=== PATIENT | female | born 1985 | race Caucasian/White ===

== ENCOUNTER 2017-06-17 15:44 | Inpatient (IN) | payer MEDICAID ==
[2017-06-17] MEDS ORDERED: IBUPROFEN 600 MG TAB PO (16:30)
[2017-06-17] MEDS ORDERED: CARBOPROST 250 MCG INJ IM (16:30)
[2017-06-17] MEDS ORDERED: BUTORPHANOL 2 MG INJ IV (16:30)
[2017-06-17] MEDS ORDERED: METHYLERGONOVINE 0.2 MG INJ IM (16:30)
[2017-06-17] MEDS ORDERED: LIDOCAINE 1% (MPF) 30 ML INJ INJ (16:30)
[2017-06-17] MEDS ORDERED: MISOPROSTOL 200 MCG TAB PR (16:30)
[2017-06-17] MEDS ORDERED: OXYTOCIN 30 UNITS/LR 500 ML IV (16:30)
[2017-06-17] MEDS: LACTATED RINGER'S 1,000 ML IV (17:58)
[2017-06-17] MEDS: DINOPROSTONE 10 MG VAG SUPP VAG (17:59)
[2017-06-17 18:11] LABS: ADD MAN DIFF? NO
[2017-06-17 18:13] LABS: BASOPHILS % 0.2 % (0.0-2.0); EOSINOPHILS # 0.1 10^3/ul (0.0-0.5); EOSINOPHILS % 0.6 % (0.0-7.0); HEMATOCRIT 37.9 % (37.0-47.0); LYMPHOCYTES # 2.7 10^3/ul (0.8-2.9); LYMPHOCYTES % 21.2 % (15.0-51.0); MEAN CORPUSCULAR HEMOGLOBIN 31.1 pg (29.0-33.0); MEAN CORPUSCULAR HGB CONC 34.3 g/dl (32.0-37.0); MEAN CORPUSCULAR VOLUME 90.7 fl (82.0-101.0); MEAN PLATELET VOLUME 10.9 fl (7.4-10.4); MONOCYTE # 0.6 10^3/ul (0.3-0.9); MONOCYTES % 4.9 % (0.0-11.0); NEUTROPHIL # 9.1 10^3/ul (1.6-7.5); NEUTROPHILS % 72.3 % (39.0-77.0); PLATELET COUNT 256 10^3/UL (140-415); RED BLOOD COUNT 4.18 10^6/ul (4.20-5.40); RED CELL DISTRIBUTION WIDTH 13.1 % (11.5-14.5)
[2017-06-17 18:13] LABS: WHITE BLOOD COUNT 12.5 10^3/ul (4.8-10.8)
[2017-06-17 18:33] LABS: INR 0.86; PROTIME 11.8 Sec (11.9-14.9); PT RATIO 0.9
[2017-06-17 18:34] LABS: PARTIAL THROMBOPLASTIN TIME 28.6 Sec (25.0-35.0)
[2017-06-18] MEDS: LACTATED RINGER'S 1,000 ML IV ×4 (00:01→20:45)
[2017-06-18] MEDS: BUTORPHANOL 2 MG INJ IV (03:00)
[2017-06-18] MEDS: OXYTOCIN 30 UNITS/LR 500 ML IV (08:41)
[2017-06-18 14:01] LABS: RAPID PLASMA REAGIN NONREACTIVE (NR)
[2017-06-18] MEDS ORDERED: ONDANSETRON 4 MG INJ IV (21:00)
[2017-06-18] MEDS ORDERED: DIPHENHYDRAMINE 50 MG INJ IV (21:00)
[2017-06-18] MEDS ORDERED: FENTAnyl 2MCG/ML-ROPIV 0.2% 100 ML BAG EPI (21:00)
[2017-06-18] MEDS ORDERED: EPHEDrine SULFATE 50 MG/5 ML SYG IV (21:00)
[2017-06-18] MEDS ORDERED: NALOXONE (0.4 MG/ML) INJ IV (21:00)
[2017-06-19] MEDS: MINERAL OIL LIGHT 10 ML VIAL TOP (01:38)
[2017-06-19] MEDS: OXYTOCIN 30 UNITS/LR 500 ML IV ×3 (01:50→02:15)
[2017-06-19] MEDS ORDERED: OXYCODONE/ASPIRIN (4.88/325) TAB PO (02:00)
[2017-06-19] MEDS ORDERED: CARBOPROST 250 MCG INJ IM (02:00)
[2017-06-19] MEDS ORDERED: MISOPROSTOL 200 MCG TAB PR (02:00)
[2017-06-19] MEDS ORDERED: METHYLERGONOVINE 0.2 MG INJ IM (02:00)
[2017-06-19] MEDS ORDERED: OXYTOCIN 30 UNITS/LR 500 ML IV (02:00)
[2017-06-19] MEDS: LACTATED RINGER'S 1,000 ML IV* (04:17)
[2017-06-19] MEDS: IBUPROFEN 600 MG TAB PO ×3 (06:00→18:16)
[2017-06-19] MEDS: BENZOCAINE 20% 56 ML SPRAY TOP (06:01)
[2017-06-19] MEDS: LANOLIN 7 GM TUBE TOP (06:01)
[2017-06-20] MEDS: IBUPROFEN 600 MG TAB PO ×4 (00:35→17:20)
[2017-06-20 11:23] LABS: ADD MAN DIFF? NO
[2017-06-20 11:30] LABS: WHITE BLOOD COUNT 11.1 10^3/ul (4.8-10.8)
[2017-06-20 11:30] LABS: BASOPHILS % 0.4 % (0.0-2.0); EOSINOPHILS # 0.2 10^3/ul (0.0-0.5); EOSINOPHILS % 1.7 % (0.0-7.0); HEMATOCRIT 36.9 % (37.0-47.0); HEMOGLOBIN 12.5 g/dl (12.0-16.0); LYMPHOCYTES # 2.5 10^3/ul (0.8-2.9); LYMPHOCYTES % 22.9 % (15.0-51.0); MEAN CORPUSCULAR HEMOGLOBIN 31.4 pg (29.0-33.0); MEAN CORPUSCULAR HGB CONC 33.9 g/dl (32.0-37.0); MEAN CORPUSCULAR VOLUME 92.7 fl (82.0-101.0); MEAN PLATELET VOLUME 10.6 fl (7.4-10.4); MONOCYTE # 0.7 10^3/ul (0.3-0.9); NEUTROPHIL # 7.6 10^3/ul (1.6-7.5); NEUTROPHILS % 68.2 % (39.0-77.0); PLATELET COUNT 244 10^3/UL (140-415); RED BLOOD COUNT 3.98 10^6/ul (4.20-5.40); RED CELL DISTRIBUTION WIDTH 13.4 % (11.5-14.5)
[2017-06-21] MEDS: IBUPROFEN 600 MG TAB PO ×3 (00:38→12:40)
[2017-06-21] MEDS: DIPHTH/TET/ACEL PERTUSS (ADULT) 0.5 ML VIAL IM* (09:00)
== END 2017-06-21 14:57 | disposition home or self-care (01) | DRG 775 ==
LOC: OBT 15:44 → L-D 06-18 08:24 → PP1 06-19 03:35 → L-D 15:45 → OBT 16:15 → L-D 16:12
PROVIDERS: Obstetrics & Gynecology
PROC: 10E0XZZ Delivery of Products of Conception, External Approach (ICD-10-PCS; principal; 2017-06-19)
PROC: 0UQGXZZ Repair Vagina, External Approach (ICD-10-PCS; 2017-06-19)
PROC: 3E033VJ Introduction of Other Hormone into Peripheral Vein, Percutaneous Approach (ICD-10-PCS; 2017-06-19)
DX: O48.0 Post-term pregnancy (principal); O71.4 Obstetric high vaginal laceration alone; Z3A.40 40 weeks gestation of pregnancy; O69.81X0 Labor and delivery complicated by cord around neck, without compression, not applicable or unspecified; Z37.0 Single live birth
CPT/HCPCS: 62319; 76815; 76818; 85025; 85610; 85730; 86592; 86900; 86901

== ENCOUNTER 2018-07-16 17:21 | Outpatient (CLI) | payer OTHER | END 2018-07-16 18:50 | disposition home or self-care (01) | LOC: OBT 17:21 → L-D 17:23 → OBT 18:50 | DX: O26.893 Other specified pregnancy related conditions, third trimester (principal); R10.2 Pelvic and perineal pain; Z3A.34 34 weeks gestation of pregnancy | CPT/HCPCS: 76817; 76818 ==

== ENCOUNTER 2018-08-14 15:02 | Outpatient (CLI) | payer OTHER | END 2018-08-14 17:26 | disposition home or self-care (01) | LOC: OBT 15:02 → L-D 15:03 → OBT 17:26 | DX: O24.419 Gestational diabetes mellitus in pregnancy, unspecified control (principal); O36.8330 Maternal care for abnormalities of the fetal heart rate or rhythm, third trimester, not applicable or unspecified; Z3A.37 37 weeks gestation of pregnancy | CPT/HCPCS: 76815; 76818; 82962 ==

== ENCOUNTER 2018-08-17 11:31 | Outpatient (CLI) | payer OTHER | END 2018-08-17 14:20 | disposition home or self-care (01) | LOC: OBT 11:31 → L-D 11:32 → OBT 14:20 | DX: O24.419 Gestational diabetes mellitus in pregnancy, unspecified control (principal); O41.03X0 Oligohydramnios, third trimester, not applicable or unspecified; Z3A.37 37 weeks gestation of pregnancy | CPT/HCPCS: 76818; 82962 ==

== ENCOUNTER 2018-08-20 16:25 | Inpatient (IN) | payer OTHER ==
[2018-08-20] MEDS: LACTATED RINGER'S 1,000 ML IV ×2 (18:54→23:43)
[2018-08-20 18:57] LABS: ADD MAN DIFF? NO
[2018-08-20 18:59] LABS: WHITE BLOOD COUNT 10.3 10^3/ul (4.8-10.8)
[2018-08-20 18:59] LABS: BASOPHILS % 0.3 % (0.0-2.0); EOSINOPHILS # 0.1 10^3/ul (0.0-0.5); EOSINOPHILS % 1.2 % (0.0-7.0); HEMATOCRIT 38.8 % (37.0-47.0); LYMPHOCYTES % 19.3 % (15.0-51.0); MEAN CORPUSCULAR HEMOGLOBIN 31.1 pg (29.0-33.0); MEAN CORPUSCULAR HGB CONC 33.5 g/dl (32.0-37.0); MEAN CORPUSCULAR VOLUME 92.8 fl (82.0-101.0); MEAN PLATELET VOLUME 10.7 fl (7.4-10.4); MONOCYTE # 0.7 10^3/ul (0.3-0.9); MONOCYTES % 6.4 % (0.0-11.0); NEUTROPHIL # 7.4 10^3/ul (1.6-7.5); PLATELET COUNT 258 10^3/UL (140-415); RED BLOOD COUNT 4.18 10^6/ul (4.20-5.40); RED CELL DISTRIBUTION WIDTH 13.3 % (11.5-14.5)
[2018-08-20 19:21] LABS: INR 0.82; PROTIME 11.4 Sec (11.9-14.9); PT RATIO 0.9
[2018-08-20 19:22] LABS: PARTIAL THROMBOPLASTIN TIME 28.4 Sec (23.0-35.0)
[2018-08-20 19:53] LABS: GLUCOSE 111 mg/dl (70-220)
[2018-08-20] MEDS ORDERED: ACETAMINOPHEN 325 MG TAB PO (23:30)
[2018-08-20] MEDS: DIPHENHYDRAMINE 25 MG CAP PO (23:43)
[2018-08-21] MEDS ORDERED: CARBOPROST 250 MCG INJ IM (10:00)
[2018-08-21] MEDS ORDERED: IBUPROFEN 600 MG TAB PO (10:00)
[2018-08-21] MEDS ORDERED: BUTORPHANOL 2 MG INJ IV (10:00)
[2018-08-21] MEDS ORDERED: MISOPROSTOL 200 MCG TAB PR (10:00)
[2018-08-21] MEDS ORDERED: LIDOCAINE 1% (MPF) 30 ML INJ INJ (10:00)
[2018-08-21] MEDS ORDERED: OXYTOCIN 30 UNITS/LR 500 ML IV ×2 (10:00)
[2018-08-21] MEDS ORDERED: METHYLERGONOVINE 0.2 MG INJ IM (10:00)
[2018-08-21] MEDS: OXYTOCIN 30 UNITS/LR 500 ML IV (12:27)
[2018-08-21] MEDS: LACTATED RINGER'S 1,000 ML IV ×3 (16:02→21:40)
[2018-08-21 20:37] LABS: HEPATITIS B SURFACE ANTIGEN NEGATIVE (NEGATIVE)
[2018-08-21] MEDS ORDERED: DIPHENHYDRAMINE 25 MG CAP PO (21:00)
[2018-08-21] MEDS ORDERED: FENTAnyl 2MCG/ML-ROPIV 0.2% 100 ML (21:24)
[2018-08-21] MEDS ORDERED: DIPHENHYDRAMINE 50 MG INJ IV (21:30)
[2018-08-21] MEDS ORDERED: NALOXONE (0.4 MG/ML) INJ IV (21:30)
[2018-08-21] MEDS ORDERED: FENTAnyl 2MCG/ML-ROPIV 0.2% 100 ML BAG EPI (21:30)
[2018-08-21] MEDS ORDERED: ONDANSETRON 4 MG INJ IV (21:30)
[2018-08-22] MEDS: OXYTOCIN 30 UNITS/LR 500 ML IV (02:16)
[2018-08-22] MEDS: LACTATED RINGER'S 1,000 ML IV* ×2 (04:19→06:06)
[2018-08-22] MEDS: DEXTROSE 5%-LR 1,000 ML IV (04:19)
[2018-08-22] MEDS ORDERED: WITCH HAZEL/GLYCERIN PAD PR (04:30)
[2018-08-22] MEDS ORDERED: ACETAMINOPHEN 325 MG TAB PO (04:30)
[2018-08-22] MEDS ORDERED: ONDANSETRON 4 MG INJ IV (04:30)
[2018-08-22] MEDS ORDERED: LANOLIN HPA 1 PKT TOP (04:30)
[2018-08-22] MEDS ORDERED: METHYLERGONOVINE 0.2 MG INJ IM (04:30)
[2018-08-22] MEDS ORDERED: BENZOCAINE 20% 56 ML SPRAY TOP (04:30)
[2018-08-22] MEDS ORDERED: ZOLPIDEM 5 MG TAB PO (04:30)
[2018-08-22] MEDS ORDERED: DIPHENHYDRAMINE 50 MG INJ IV (04:30)
[2018-08-22] MEDS ORDERED: OXYCODONE/ASPIRIN (4.88/325) TAB PO (04:30)
[2018-08-22] MEDS ORDERED: CARBOPROST 250 MCG INJ IM (04:30)
[2018-08-22] MEDS ORDERED: MISOPROSTOL 200 MCG TAB PR (04:30)
[2018-08-22] MEDS ORDERED: OXYTOCIN 30 UNITS/LR 500 ML IV (04:30)
[2018-08-22] MEDS ORDERED: DIBUCAINE 1% 30 GM OINT TOP (04:30)
[2018-08-22] MEDS ORDERED: IBUPROFEN 600 MG TAB (05:54)
[2018-08-22] MEDS: IBUPROFEN 600 MG TAB PO ×3 (06:05→17:53)
[2018-08-22 15:18] LABS: RAPID PLASMA REAGIN NONREACTIVE (NR)
[2018-08-23] MEDS: IBUPROFEN 600 MG TAB PO ×3 (00:34→12:47)
[2018-08-23 06:58] LABS: ADD MAN DIFF? NO
[2018-08-23 07:00] LABS: WHITE BLOOD COUNT 10.4 10^3/ul (4.8-10.8)
[2018-08-23 07:00] LABS: BASOPHILS % 0.4 % (0.0-2.0); EOSINOPHILS # 0.2 10^3/ul (0.0-0.5); EOSINOPHILS % 1.6 % (0.0-7.0); HEMATOCRIT 37.6 % (37.0-47.0); HEMOGLOBIN 12.4 g/dl (12.0-16.0); LYMPHOCYTES % 38.2 % (15.0-51.0); MEAN CORPUSCULAR HEMOGLOBIN 31.3 pg (29.0-33.0); MEAN CORPUSCULAR VOLUME 94.9 fl (82.0-101.0); MEAN PLATELET VOLUME 10.6 fl (7.4-10.4); MONOCYTE # 0.5 10^3/ul (0.3-0.9); MONOCYTES % 5.1 % (0.0-11.0); NEUTROPHIL # 5.7 10^3/ul (1.6-7.5); NEUTROPHILS % 54.1 % (39.0-77.0); PLATELET COUNT 233 10^3/UL (140-415); RED BLOOD COUNT 3.96 10^6/ul (4.20-5.40); RED CELL DISTRIBUTION WIDTH 13.5 % (11.5-14.5)
[2018-08-23] MEDS: SENNA/DOCUSATE NA (8.6MG/50MG) TAB PO (09:55)
[2018-08-23] MEDS: DIPHTH/TET/ACEL PERTUSS (ADULT) 0.5 ML VIAL IM* (15:11)
[2018-08-24] MEDS ORDERED: MEASLES,MUMPS,RUBELLA VACCINE INJ SC* (09:00)
== END 2018-08-23 14:50 | disposition home or self-care (01) | DRG 807 ==
LOC: OBT 16:25 → PP1 08-22 04:08 → L-D 16:26 → OBT 17:00 → L-D 17:00
PROVIDERS: Obstetrics & Gynecology
PROC: 10E0XZZ Delivery of Products of Conception, External Approach (ICD-10-PCS; principal; 2018-08-22)
DX: O24.419 Gestational diabetes mellitus in pregnancy, unspecified control (principal); Z37.0 Single live birth; Z3A.38 38 weeks gestation of pregnancy
CPT/HCPCS: 62322; 72170; 76815; 76818; 82947; 82962; 85025; 85610; 85730; 86592; 86900; 86901; 87340; 99464